=== PATIENT | male | born 1935 | race Caucasian/White ===

== ENCOUNTER 2016-10-30 14:44 | Observation (INO) | payer MEDICARE, BC ==
[2016-10-30] MEDS ORDERED: SODIUM CHLORIDE 0.9% 500 ML IV STA (15:20)
--- NOTE | 2016-10-30 15:39 | ED ---
General Adult HPI - General Chief complaint: Weakness Stated complaint: Poss Stroke Time Seen by Provider: 10/30/16 14:52 Source: patient, family, RN notes reviewed Mode of arrival: wheelchair Limitations: no limitations - History of Present Illness Initial comments: 81-year-old male with past medical history of hypercholesterolemia presents for evaluation of generalized weakness and episode of confusion. Patient was shopping with his , complaints of dizziness and lightheadedness. Patient was able to get into the car with some assistance. No focal weakness reported. No chest pain or palpitations. No abdominal pain. No fever or chills. Patient's had a momentary loss consciousness while in the car with his . He was unresponsive. Patient has no history of stroke, no heart history, only medicine he takes is for cholesterol. - Related Data Home Medications Medication Instructions Recorded Confirmed Calcium Carbonate [Calcium] 600 mg PO QAM 10/30/16 10/30/16 Cholecalciferol [Vitamin D3] 1,000 unit PO QAM 10/30/16 10/30/16 Magnesium 200 mg PO QAM 10/30/16 10/30/16 Meloxicam [Mobic] 7.5 mg PO DAILY PRN 10/30/16 10/30/16 Omeprazole 20 mg PO DAILY PRN 10/30/16 10/30/16 Pravastatin Sodium [Pravachol] 20 mg PO HS 10/30/16 10/30/16 Zinc 50 mg PO QA 10/30/16 10/30/16 Allergies Allergy/AdvReac Type Severity Reaction Status Date / Time No Known Allergies Allergy Verified 10/30/16 15:30 Review of Systems ROS Statement: Those systems with pertinent positive or pertinent negative responses have been documented in the HPI. ROS Other: All systems not noted in ROS Statement are negative. Past Medical History Past Medical History: Hyperlipidemia History of Any Multi-Drug Resistant Organisms: None Reported Additional Past Surgical History / Comment(s): hernia repairx2 rt knee replacement Past Psychological History: No Psychological Hx Reported Smoking Status: Never smoker Past Alcohol Use History: None Reported Past Drug Use History: None Reported General Exam Limitations: no limitations General appearance: alert, in no apparent distress Head exam: Present: atraumatic, normocephalic Eye exam: Present: normal appearance, PERRL ENT exam: Present: normal exam, mucous membranes moist Neck exam: Present: normal inspection. Absent: tenderness, meningismus Respiratory exam: Present: normal lung sounds bilaterally. Absent: respiratory distress Cardiovascular Exam: Present: regular rate, normal rhythm GI/Abdominal exam: Present: soft. Absent: distended, tenderness Extremities exam: Present: normal capillary refill, joint swelling (Right wrist tender and swollen). Absent: calf tenderness Course Vital Signs 10/30/16 10/30/16 10/30/16 14:50 15:05 16:15 Temperature 97.4 F L Pulse Rate 77 85 Respiratory 18 18 18 Rate Blood Pressure 87/57 99/59 140/86 Blood Pressure [Right Arm Sitting] Blood Pressure [Right Arm Standing] Blood Pressure [Right Arm Supine] O2 Sat by Pulse 97 Oximetry 10/30/16 10/30/16 16:56 17:10 Temperature Pulse Rate 90 Respiratory 20 Rate Blood Pressure 165/98 Blood Pressure 163/95 [Right Arm Sitting] Blood Pressure 157/93 [Right Arm Standing] Blood Pressure 156/88 [Right Arm Supine] O2 Sat by Pulse 97 Oximetry - Reevaluation(s) Reevaluation #1: 10/30/16 17:25 Patient receives IV hydration, reevaluation he is completely asymptomatic. EKG Findings - EKG Comments: EKG Findings:: EKG shows no sinus rhythm, ventricular rate 66, WI interval 118, QRS duration 74, QTC 396, no signs of ischemia or infarction Medical Decision Making - Medical Decision Making 81-year-old gentleman with no significant past medical history presents with syncopal episode. Patient does admit on reevaluation 2 doing extensive [place] work yesterday. It was very warm all. Denies nausea vomiting. States he did have breakfast and some water today. On initial evaluation patient was hypotensive. He receives IV hydration. Laboratory studies including CBC, CMP like gas and urinalysis are unremarkable for mild lactic acidosis at 2.5. This is consistent with dehydration and volume depletion. EKG is nonischemic. Chest x-ray shows no acute findings. Head CT negative for intracranial pathology. Reevaluation patient is feeling better, however his is very concerned if the second episode like this were to happen. They are both agreeable to observation with IV rehydration. - Lab Data Result diagrams: 10/30/16 15:00 10/30/16 15:00 Lab Results 09/24/17 09/24/17 09/24/17 Range/Units 15:00 15:00 15:00 WBC (3.8-10.6) k/uL RBC (4.30-5.90) m/uL Hgb (13.0-17.5) gm/dL Hct (39.0-53.0) % MCV (80.0-100.0) fL MCH (25.0-35.0) pg MCHC (31.0-37.0) g/dL RDW (11.5-15.5) % Plt Count (150-450) k/uL Neutrophils % % Lymphocytes % % Monocytes % % Eosinophils % % Basophils % % Neutrophils # (1.3-7.7) k/uL Lymphocytes # (1.0-4.8) k/uL Monocytes # (0-1.0) k/uL Eosinophils # (0-0.7) k/uL Basophils # (0-0.2) k/uL PT (9.0-12.0) sec INR (<1.2) APTT (22.0-30.0) sec Sodium 138 (137-145) mmol/L Potassium 4.4 (3.5-5.1) mmol/L Chloride 107 (98-107) mmol/L Carbon Dioxide 20 L (22-30) mmol/L Anion Gap 11 mmol/L BUN 16 (9-20) mg/dL Creatinine 0.90 (0.66-1.25) mg/dL Est GFR (MDRD) Af Amer >60 (>60 ml/min/1.73 sqM) Est GFR (MDRD) Non-Af >60 (>60 ml/min/1.73 sqM) Glucose 113 H (74-99) mg/dL Plasma Lactic Acid Elton (0.7-2.0) mmol/L Calcium 8.8 (8.4-10.2) mg/dL Magnesium 1.9 (1.6-2.3) mg/dL Total Bilirubin 0.8 (0.2-1.3) mg/dL AST 23 (17-59) U/L ALT 39 (21-72) U/L Alkaline Phosphatase 64 (38-126) U/L Total Creatine Kinase 49 L (55-170) U/L CK-MB (CK-2) 1.3 (0.0-2.4) ng/mL CK-MB (CK-2) Rel Index 2.7 Troponin I <0.012 (0.000-0.034) ng/mL NT-Pro-B Natriuret Pep 42 pg/mL Total Protein 6.4 (6.3-8.2) g/dL Albumin 3.8 (3.5-5.0) g/dL TSH 3.310 (0.465-4.680) mIU/L Urine Color Urine Appearance (Clear) Urine pH (5.0-8.0) Ur Specific Brandon (1.001-1.035) Urine Protein (Negative) Urine Glucose (UA) (Negative) Urine Ketones (Negative) Urine Blood (Negative) Urine Nitrite (Negative) Urine Bilirubin (Negative) Urine Urobilinogen (<2.0) mg/dL Ur Leukocyte Esterase (Negative) 10/30/16 10/30/16 10/30/16 Range/Units 15:00 15:00 16:20 WBC 10.5 (3.8-10.6) k/uL RBC 4.69 (4.30-5.90) m/uL Hgb 15.3 (13.0-17.5) gm/dL Hct 46.2 (39.0-53.0) % MCV 98.3 (80.0-100.0) fL MCH 32.6 (25.0-35.0) pg MCHC 33.1 (31.0-37.0) g/dL RDW 13.8 (11.5-15.5) % Plt Count 224 (150-450) k/uL Neutrophils % 67 % Lymphocytes % 21 % Monocytes % 8 % Eosinophils % 2 % Basophils % 1 % Neutrophils # 7.1 (1.3-7.7) k/uL Lymphocytes # 2.2 (1.0-4.8) k/uL Monocytes # 0.8 (0-1.0) k/uL Eosinophils # 0.2 (0-0.7) k/uL Basophils # 0.1 (0-0.2) k/uL PT 10.1 (9.0-12.0) sec INR 1.0 (<1.2) APTT 23.2 (22.0-30.0) sec Sodium (137-145) mmol/L Potassium (3.5-5.1) mmol/L Chloride (98-107) mmol/L Carbon Dioxide (22-30) mmol/L Anion Gap mmol/L BUN (9-20) mg/dL Creatinine (0.66-1.25) mg/dL Est GFR (MDRD) Af Amer (>60 ml/min/1.73 sqM) Est GFR (MDRD) Non-Af (>60 ml/min/1.73 sqM) Glucose (74-99) mg/dL Plasma Lactic Acid Elton 2.5 H* (0.7-2.0) mmol/L Calcium (8.4-10.2) mg/dL Magnesium (1.6-2.3) mg/dL Total Bilirubin (0.2-1.3) mg/dL AST (17-59) U/L ALT (21-72) U/L Alkaline Phosphatase (38-126) U/L Total Creatine Kinase (55-170) U/L CK-MB (CK-2) (0.0-2.4) ng/mL CK-MB (CK-2) Rel Index Troponin I (0.000-0.034) ng/mL NT-Pro-B Natriuret Pep pg/mL Total Protein (6.3-8.2) g/dL Albumin (3.5-5.0) g/dL TSH (0.465-4.680) mIU/L Urine Color Urine Appearance (Clear) Urine pH (5.0-8.0) Ur Specific Brandon (1.001-1.035) Urine Protein (Negative) Urine Glucose (UA) (Negative) Urine Ketones (Negative) Urine Blood (Negative) Urine Nitrite (Negative) Urine Bilirubin (Negative) Urine Urobilinogen (<2.0) mg/dL Ur Leukocyte Esterase (Negative) 10/30/16 Range/Units 16:47 WBC (3.8-10.6) k/uL RBC (4.30-5.90) m/uL Hgb (13.0-17.5) gm/dL Hct (39.0-53.0) % MCV (80.0-100.0) fL MCH (25.0-35.0) pg MCHC (31.0-37.0) g/dL RDW (11.5-15.5) % Plt Count (150-450) k/uL Neutrophils % % Lymphocytes % % Monocytes % % Eosinophils % % Basophils % % Neutrophils # (1.3-7.7) k/uL Lymphocytes # (1.0-4.8) k/uL Monocytes # (0-1.0) k/uL Eosinophils # (0-0.7) k/uL Basophils # (0-0.2) k/uL PT (9.0-12.0) sec INR (<1.2) APTT (22.0-30.0) sec Sodium (137-145) mmol/L Potassium (3.5-5.1) mmol/L Chloride (98-107) mmol/L Carbon Dioxide (22-30) mmol/L Anion Gap mmol/L BUN (9-20) mg/dL Creatinine (0.66-1.25) mg/dL Est GFR (MDRD) Af Amer (>60 ml/min/1.73 sqM) Est GFR (MDRD) Non-Af (>60 ml/min/1.73 sqM) Glucose (74-99) mg/dL Plasma Lactic Acid Elton (0.7-2.0) mmol/L Calcium (8.4-10.2) mg/dL Magnesium (1.6-2.3) mg/dL Total Bilirubin (0.2-1.3) mg/dL AST (17-59) U/L ALT (21-72) U/L Alkaline Phosphatase (38-126) U/L Total Creatine Kinase (55-170) U/L CK-MB (CK-2) (0.0-2.4) ng/mL CK-MB (CK-2) Rel Index Troponin I (0.000-0.034) ng/mL NT-Pro-B Natriuret Pep pg/mL Total Protein (6.3-8.2) g/dL Albumin (3.5-5.0) g/dL TSH (0.465-4.680) mIU/L Urine Color Yellow Urine Appearance Clear (Clear) Urine pH 6.0 (5.0-8.0) Ur Specific Brandon 1.012 (1.001-1.035) Urine Protein Trace H (Negative) Urine Glucose (UA) Negative (Negative) Urine Ketones Negative (Negative) Urine Blood Negative (Negative) Urine Nitrite Negative (Negative) Urine Bilirubin Negative (Negative) Urine Urobilinogen <2.0 (<2.0) mg/dL Ur Leukocyte Esterase Negative (Negative) Disposition Clinical Impression: Syncope, Dehydration Disposition: ADMITTED IP TO THIS HOSP Condition: Stable Referrals: Ash Fink DO [Primary Care Provider] - 1-2 days Decision to Admit Reason: Admit from EC Decision Date: 10/30/16 Decision Time: 17:28
[2016-10-30 15:53] LABS: Basophils # (A) 0.1 k/uL (0-0.2); Basophils % (A) 1 %; CH 33.1; CHCM 33.9; Eosinophils # (A) 0.2 k/uL (0-0.7); Eosinophils % (A) 2 %; HCT 46.2 % (39.0-53.0); HDW 2.35; HGB 15.3 gm/dL (13.0-17.5); Luc % (Auto) 2; Lymphocytes # (A) 2.2 k/uL (1.0-4.8); Lymphocytes % (A) 21 %; MCH 32.6 pg (25.0-35.0); MCHC 33.1 g/dL (31.0-37.0); MCV 98.3 fL (80.0-100.0); Monocytes # (A) 0.8 k/uL (0-1.0); Monocytes % (A) 8 %; Neutrophils # (A) 7.1 k/uL (1.3-7.7); Neutrophils % (A) 67 %; RBC 4.69 m/uL (4.30-5.90); RDW 13.8 % (11.5-15.5); WBC 10.5 k/uL (3.8-10.6); WBC (Perox) 10.97
[2016-10-30 16:04] LABS: ALT 39 U/L (21-72); AST 23 U/L (17-59); Alkaline Phosphatase 64 U/L (38-126); Anion Gap 11 mmol/L; Blood Urea Nitrogen 16 mg/dL (9-20); Calcium 8.8 mg/dL (8.4-10.2); Carbon Dioxide 20 mmol/L (22-30); Chloride 107 mmol/L (98-107); Glucose 113 mg/dL (74-99); Magnesium 1.9 mg/dL (1.6-2.3); Non-African American GFR(MDRD) >60 (>60 ml/min/1.73 sqM); Potassium 4.4 mmol/L (3.5-5.1); Sodium 138 mmol/L (137-145); Total Bilirubin 0.8 mg/dL (0.2-1.3); Total Protein 6.4 g/dL (6.3-8.2)
[2016-10-30 16:07] LABS: Creatine Kinase 49 U/L (55-170)
[2016-10-30 16:08] LABS: Partial Thromboplastin Time 23.2 sec (22.0-30.0); Prothrombin Time 10.1 sec (9.0-12.0)
[2016-10-30] MEDS: SODIUM CHLORIDE 0.9% 1,000 ML IV SCH (16:13)
--- NOTE | 2016-10-30 16:17 | CT ---
EXAMINATION TYPE: CT brain wo con DATE OF EXAM: 10/30/2016 COMPARISON: NONE HISTORY: Syncopal episode today CT DLP: 1036 mGycm Automated exposure control for dose reduction was used. FINDINGS: There is mild cerebral cortical atrophy. There is no mass effect nor midline shift. There is no sign of intracranial hemorrhage. There is mild hypodensity in the periventricular white matter. The calvar ium is intact. There is mucosal thickening throughout the left mastoid air cells. There is opacificat ion of the left middle ear cavity. IMPRESSION: CEREBRAL ATROPHY AND CHRONIC SMALL VESSEL ISCHEMIA. NO ACUTE INTRACRANIAL ABNORMALITY. CHANGES OF CHRONIC LEFT MASTOIDITIS. THERE IS INCREASED DENSITY IN THE LEFT MIDDLE EAR CAVITY CONSIST ENT WITH OTITIS MEDIA.
--- NOTE | 2016-10-30 16:19 | XR ---
EXAMINATION TYPE: XR chest 2V DATE OF EXAM: 10/30/2016 COMPARISON: NONE HISTORY: Weakness TECHNIQUE: Frontal and lateral views of the chest are obtained. FINDINGS: There is no heart failure nor confluent pneumonic infiltrate. There are no hilar masses. T horacic aorta shows mild atheromatous change. There is no sign of pleural effusion. There is 30% anterior wedging of T12 and L2 vertebra. IMPRESSION: No active cardiac pulmonary disease. Normal heart. Old compression fractures.
[2016-10-30 16:20] LABS: Creatine Kinase MB 1.3 ng/mL (0.0-2.4); Troponin I <0.012 ng/mL (0.000-0.034)
--- NOTE | 2016-10-30 16:20 | XR ---
EXAMINATION TYPE: XR wrist complete RT DATE OF EXAM: 10/30/2016 COMPARISON: NONE HISTORY: Pain and swelling TECHNIQUE: 4 views FINDINGS: There is calcification in the tracheal cartilage. Carpal bones are intact and there is narr owing of first carpometacarpal joint space. I see no fracture line. There is some narrowing of radioc arpal joint space. IMPRESSION: Hypertrophic degenerative changes. Chondrocalcinosis. No fracture seen.
[2016-10-30 17:03] LABS: Appearance,Urine Clear (Clear); Bilirubin,Urine Negative (Negative); Glucose,Urine (UA) Negative (Negative); Ketones,Urine Negative (Negative); Leukocyte Esterase,Urine Negative (Negative); Nitrite,Urine Negative (Negative); Protein,Urine Trace (Negative); Specific Gravity,Urine 1.012 (1.001-1.035); UA Billing (MACRO vs. MICRO) CHEM; Urobilinogen,Urine <2.0 mg/dL (<2.0)
[2016-10-30] MEDS ORDERED: NALOXONE 0.4 MG/ML 1 ML VIAL IV PRN (17:28)
[2016-10-30 18:58] VITALS: BMI 26.1
--- NOTE | 2016-10-30 20:13 | P.HPIM ---
History of Present Illness H&P Date: 10/30/16 Chief Complaint: Dizzy and lightheaded 81-year-old male patient of Dr. Ash Fink with past medical history significant for hypercholesterolemia presented for evaluation of generalized weakness and an episode of lightheadedness and confusion. Patient and his went to [employer] for shopping, patient's went inside the mall and completed her shopping while the patient sat in his car and read a book, patient went back into the mall to meet up with and on the way out patient became dizzy and lightheaded. No chest pain and palpitations no abdominal pain no fever no chills. Patient was assisted into the car by his and another entry specialists. Patient doesn't remember much after that, informs us that he was unresponsive in the car for a short time. Patient states that he did do a fair amount of activity prior to going to the mall with his he cut the grass watered will and rode his bicycle. Review of Systems GEN.: [None] EYES: [Previous cataract surgery bilaterally, wears glasses] HEENT: [None] NECK: [None] RESPIRATORY: [None] CARDIOVASCULAR: [None] GASTROINTESTINAL: [Occasional indigestion] GENITOURINARY: [Urgency] MUSCULOSKELETAL: [Right foot drop secondary to old sports injury, and the type work patient has done, bilateral carpal tunnel wrist pain] LYMPHATICS: [None] HEMATOLOGICAL: [None] PSYCHIATRY: [None] NEUROLOGICAL: [None] Past Medical History Past Medical History: Hyperlipidemia History of Any Multi-Drug Resistant Organisms: None Reported Additional Past Surgical History / Comment(s): hernia repairx2 rt knee replacement Past Psychological History: No Psychological Hx Reported Smoking Status: Former smoker (smoked a pipe or cigars until 1963, pipe was occasional and cigars were about 1-2/day for 25 years) Past Alcohol Use History: None Reported Past Drug Use History: None Reported Additional History: 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, 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 Medications and Allergies Home Medications Medication Instructions Recorded Confirmed Type Calcium Carbonate [Calcium] 600 mg PO QAM 10/30/16 10/30/16 History Cholecalciferol [Vitamin D3] 1,000 unit PO QAM 10/30/16 10/30/16 History Magnesium 200 mg PO QAM 10/30/16 10/30/16 History Meloxicam [Mobic] 7.5 mg PO DAILY PRN 10/30/16 10/30/16 History Omeprazole 20 mg PO DAILY PRN 10/30/16 10/30/16 History Pravastatin Sodium [Pravachol] 20 mg PO DAILY 10/30/16 10/30/16 History Zinc 50 mg PO QAM 10/30/16 10/30/16 History Allergies Allergy/AdvReac Type Severity Reaction Status Date / Time No Known Allergies Allergy Verified 10/30/16 15:30 Physical Exam Vitals: Vital Signs Temp Pulse Pulse Resp BP BP BP 10/30/16 19:03 99 18 10/30/16 19:01 97.4 F L 99 18 171/96 10/30/16 17:59 98 F 88 20 170/106 10/30/16 17:10 163/95 157/93 10/30/16 16:56 90 20 165/98 10/30/16 16:15 85 18 140/86 10/30/16 15:05 77 18 99/59 10/30/16 14:50 97.4 F L 18 87/57 BP Pulse Ox 10/30/16 19:03 10/30/16 19:01 97 10/30/16 17:59 99 10/30/16 17:10 156/88 10/30/16 16:56 97 10/30/16 16:15 97 10/30/16 15:05 10/30/16 14:50 Intake and Output 10/30/16 10/30/16 10/30/16 06:59 14:59 22:59 Other: Voiding Method Toilet Weight 73.482 kg 73.482 kg Patient Weight 10/31/16 06:59 Weight 73.482 kg VITAL SIGNS: [Temperature 97.4, pulse 99, respirations 18, blood pressure 171/96 , oxygen saturation 97% on room air.. BMI 26.1 kg/m] GENERAL: [Average built, sitting up, comfortable]. EYES: [Pupils equal. Conjunctiva zain]l. HEENT: [External appearance of nose and ears normal, oral cavity grossly normal] . NECK: [JVD not raised; masses not palpable]. HEART: [First and second heart sounds are normal; no edema]. LUNGS:[ Respiratory rate normal; clear to auscultation]. ABDOMEN: [Soft, nontender, liver spleen not palpable, no masses palpable]. LYMPHATICS: [No lymph nodes palpable in the axilla and neck]. PSYCH: [Alert and oriented x3; mood and affect zain]l. MUSCULOSKELETAL: Right foot with brace on for foot drop. Bilateral wrists tender to palpation secondary to carpal tunnel NEUROLOGICAL: [Cranial nerves grossly intact; no facial asymmetry, power and sensation grossly intact]. Results CBC & Chem 7: 10/30/16 15:00 10/30/16 15:00 Labs: Abnormal Lab Results - Last 24 Hours (Table) 10/30/16 10/30/16 10/30/16 Range/Units 15:00 15:00 16:20 Carbon Dioxide 20 L (22-30) mmol/L Glucose 113 H (74-99) mg/dL Plasma Lactic Acid Elton 2.5 H* (0.7-2.0) mmol/L Total Creatine Kinase 49 L (55-170) U/L Urine Protein (Negative) 10/30/16 Range/Units 16:47 Carbon Dioxide (22-30) mmol/L Glucose (74-99) mg/dL Plasma Lactic Acid Elton (0.7-2.0) mmol/L Total Creatine Kinase (55-170) U/L Urine Protein Trace H (Negative) Thrombosis Risk Factor Assmnt - Choose All That Apply Each Risk Factor Represents 3 Points: Age 75 years or older Thrombosis Risk Factor Assessment Total Risk Factor Score: 3 Thrombosis Risk Factor Assessment Level: Moderate Risk Assessment and Plan Plan: ASSESSMENT: -Dizziness and lightheadedness, likely due to dehydration or possibly low blood glucose. -Syncope, in a patient with no significant cardiac history -Lactic acidosis likely due to dehydration -Hyperlipidemia -Right foot drop secondary to old sports injury, brace in place -bilateral wrist pain, likely due to known carpal tunnel. PLAN: Reorder home medication Continue IV fluids, orthostatic vitals, monitor patient overnight. We will continue to follow this patient closely. Plan of care discussed with the patient the bedside he is in agreement.
[2016-10-31] MEDS: SODIUM CHLORIDE 0.9% 1,000 ML IV SCH ×2 (05:51→09:52)
[2016-10-31 07:30] VITALS: BP 152/93; PULSE 78; RESP 20; TEMP 98.1
[2016-10-31 08:34] LABS: Glucose,Whole Blood 120 mg/dL (75-99)
[2016-10-31 09:48] LABS: Basophils % (A) 0 %; CH 32.8; CHCM 33.4; Eosinophils # (A) 0.1 k/uL (0-0.7); Eosinophils % (A) 1 %; HCT 44.2 % (39.0-53.0); HDW 2.37; HGB 14.5 gm/dL (13.0-17.5); Luc # (Auto) 0.15; Luc % (Auto) 2; Lymphocytes # (A) 1.5 k/uL (1.0-4.8); Lymphocytes % (A) 19 %; MCH 32.3 pg (25.0-35.0); MCHC 32.7 g/dL (31.0-37.0); MCV 98.9 fL (80.0-100.0); Mean Platelet Volume 7.7; Monocytes # (A) 0.6 k/uL (0-1.0); Monocytes % (A) 8 %; Neutrophils # (A) 5.5 k/uL (1.3-7.7); Neutrophils % (A) 70 %; RBC 4.47 m/uL (4.30-5.90); WBC 7.9 k/uL (3.8-10.6); WBC (Perox) 7.79
[2016-10-31 10:08] LABS: ALT 23 U/L (21-72); AST 18 U/L (17-59); Alkaline Phosphatase 55 U/L (38-126); Anion Gap 9 mmol/L; Blood Urea Nitrogen 11 mg/dL (9-20); Calcium 8.4 mg/dL (8.4-10.2); Carbon Dioxide 21 mmol/L (22-30); Chloride 111 mmol/L (98-107); Glucose 103 mg/dL (74-99); Non-African American GFR(MDRD) >60 (>60 ml/min/1.73 sqM); Potassium 4.1 mmol/L (3.5-5.1); Sodium 141 mmol/L (137-145); Total Bilirubin 1.1 mg/dL (0.2-1.3)
[2016-10-31] MEDS ORDERED: PANTOPRAZOLE 40 MG TABLET PO PRN (11:40)
[2016-10-31] MEDS ORDERED: PRAVASTATIN SODIUM 20 MG TAB PO SCH (11:45)
[2016-10-31] MEDS ORDERED: ENOXAPARIN 40 MG/0.4 ML SYRINGE SQ SCH (11:45)
--- NOTE | 2016-10-31 22:03 | DS ---
DISCHARGE SUMMARY DATE OF ADMISSION: 10/30/2016 DATE OF DISCHARGE: 10/31/2016 FINAL DIAGNOSES: 1. Acute syncope due to dehydration due to heat exhaustion. 2. Lactic acid due to dehydration. 3. Hyperlipidemia. 4. 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 5. Bilateral carpal tunnel. HOSPITAL COURSE: This patient was out yesterday for quite a bit, rode his bicycle, walked; the temperature was up to 90 degrees. He did not feel well afterwards and then passed out. [place] to be dehydration. He was given fluids and did really well. EKG was unremarkable. Patient was hypotensive initially, then his blood pressure did come up. PHYSICAL EXAMINATION: Lungs are clear. CARDIOVASCULAR: First and second sounds normal. DISCHARGE MEDICATIONS: 1. Calcium 600 mg p.o. daily. 2. Vitamin D3 1000 units p.o. daily. 3. Magnesium 200 mg p.o. daily. 4. Mobic 7.5 p.o. daily p.r.n. 5. Omeprazole 20 mg daily p.r.n. 6. Pravachol 20 mg p.o. daily. 7. Zinc 50 mg p.o. daily. Follow up with Dr. Fink in 2 days. MMODL / IJN: [id number] /
== END 2016-10-31 13:35 | disposition home or self-care (01) ==
LOC: EC 14:44 → 4MS4W 17:18
PROVIDERS: ADMIT Hospitalist; ATTEND Hospitalist
DX: R55 Syncope and collapse (principal); T67.5XXA Heat exhaustion, unspecified, initial encounter; E86.0 Dehydration; E78.5 Hyperlipidemia, unspecified; I95.9 Hypotension, unspecified; M21.371 Foot drop, right foot; E87.2 Acidosis; G56.03 Carpal tunnel syndrome, bilateral upper limbs; Z79.899 Other long term (current) drug therapy; Z87.891 Personal history of nicotine dependence
CPT/HCPCS: 96360; 96361; 96372; 99285; 36415; 93005; 83880; 80053 ×2; 82550; 82553; 83605; 83735; 84443; 84484; 85025 ×2; 85610; 85730; 81003; 87040; 87086; 71020; 73110; 70450; G0378 ×2; J1650

== ENCOUNTER 2017-06-26 19:06 | Inpatient (IN) | payer MEDICARE, BC ==
[2017-06-26] MEDS ORDERED: ASPIRIN 81 MG PO STA (19:39)
--- NOTE | 2017-06-26 19:39 | ED ---
Neuro HPI - General Chief Complaint: Neuro Symptoms/Deficit Stated Complaint: poss TIA Time Seen by Provider: 06/26/17 19:14 Source: patient, EMS Mode of arrival: EMS Limitations: no limitations - History of Present Illness Is the patient presenting with stroke symptoms?: Yes Initial Comments: This 82-year-old white male presents by EMS as a transfer from [facility]. He apparently had problems with his speech earlier today. It sounds as though he had some expressive aphasia around noon today which lasted about an hour or so. The symptoms then resolved and he feels back to normal at this time. He denies any history of CVA or TIA previously. He denies any weakness of his extremities. He does complain of some pain and swelling to his right wrist which she attributes to increased work recently. He denies any actual trauma to his right wrist but does have significant swelling. He denies any chest pain or shortness of breath. He did have full workup at the other hospital including a CTA of the head and neck does not show any acute processes. His laboratory is essentially within normal limits. He denies any other complaints or modifying factors. - Related Data Home Medications: Home Medications Medication Instructions Recorded Confirmed Calcium Carbonate [Calcium] 600 mg PO QAM 10/30/16 10/30/16 Cholecalciferol [Vitamin D3] 1,000 unit PO QAM 10/30/16 10/30/16 Magnesium 200 mg PO QAM 10/30/16 10/30/16 Meloxicam [Mobic] 7.5 mg PO DAILY PRN 10/30/16 10/30/16 Omeprazole 20 mg PO DAILY PRN 10/30/16 10/30/16 Pravastatin Sodium [Pravachol] 20 mg PO DAILY 10/30/16 10/30/16 Zinc 50 mg PO QAM 10/30/16 10/30/16 Allergies/Adverse Reactions: Allergies Allergy/AdvReac Type Severity Reaction Status Date / Time No Known Allergies Allergy Verified 10/30/16 15:30 Review of Systems ROS Statement: Those systems with pertinent positive or pertinent negative responses have been documented in the HPI. ROS Other: All systems not noted in ROS Statement are negative. General Exam - General Exam Comments Initial Comments: GENERAL: The patient is well nourished and well hydrated. VITAL SIGNS: Heart rate, blood pressure, respiratory rate reviewed as recorded in nurse's notes. EYES: Pupils are round and reactive. Extraocular movements are intact. No conjunctival / lid redness or swelling. ENT: No external evidence of injury, swelling, or ecchymosis. Airway is patent. Throat is clear. NECK: Nontender. No swelling or evidence of injury. No subcutaneous emphysema. Trachea is midline. No thyroid mass. HEART: Regular rate and rhythm. Good peripheral pulses. LUNGS/CHEST: Breath sounds clear and equal bilaterally. No rales, rhonchi, or wheezes. No ecchymosis, subcutaneous emphysema, or tenderness. ABDOMEN: Abdomen soft without tenderness. No palpable masses or organomegaly. No peritoneal signs. No abdominal wall swelling or ecchymosis. EXTREMITIES: There is tenderness and swelling of the right wrist and hand. There is pain with any attempt of range of motion of the right wrist. Normal muscle tone and function. No thoracolumbar tenderness. NEUROLOGIC: Sensation is grossly intact. Cranial nerve exam reveals face is symmetrical, tongue is midline, speech is clear. SKIN: No abrasions or ecchymosis is noted. No induration or masses noted. PSYCHIATRIC: Alert and oriented. Appropriate behavior and judgment. Limitations: no limitations Stroke MDM - Medical Decision Making The patient was seen and examined. All diagnostics were reviewed from the sending facility. He did have a EKG done which shows a normal sinus rhythm with no acute ST-T wave changes noted. The patient also had a full laboratory workup which was all essentially within normal limits with minimal elevation of the lactic acid at 2.8. The urine drug screen and alcohol level were negative as well. The patient also had an x-ray of the right wrist which showed significant degenerative changes. The patient also had an x-ray of the pelvis with did not show any acute abnormalities. It sounds as though the patient did have signs of a TIA. Is felt as though he would benefit from admission to the hospital short stay for further workup and treatment. He is agreeable. Case will be discussed with internal medicine shortly. Past Medical History Past Medical History: Hyperlipidemia History of Any Multi-Drug Resistant Organisms: None Reported Additional Past Surgical History / Comment(s): hernia repairx2 rt knee replacement Past Psychological History: No Psychological Hx Reported Smoking Status: Former smoker Past Alcohol Use History: Occasional Past Drug Use History: None Reported Course Vital Signs 06/26/17 19:20 Temperature 97.5 F L Pulse Rate 95 Respiratory 18 Rate Blood Pressure 169/98 O2 Sat by Pulse 97 Oximetry Disposition Clinical Impression: Expressive aphasia, Hypertension, Right wrist sprain, Wrist arthritis Disposition: ADMITTED IP TO THIS HOSP Condition: Fair Is patient prescribed a controlled substance at d/c from ED?: No Referrals: Ash Fink DO [Primary Care Provider] - 1-2 days Time of Disposition: 19:38 Decision Date: 06/26/17 Decision Time: 19:39
[2017-06-26] MEDS ORDERED: MELOXICAM 7.5 MG TAB PO PRN (20:10)
[2017-06-26] MEDS ORDERED: PANTOPRAZOLE 40 MG TABLET PO PRN (20:10)
[2017-06-26] MEDS ORDERED: FAMOTIDINE 20 MG/2 ML VIAL IV SCH (21:00)
[2017-06-26 22:57] VITALS: BMI 25.2
[2017-06-26] MEDS: traMADol 50 MG TAB PO PRN (23:07)
[2017-06-27 07:58] LABS: Cholesterol 149 mg/dL (<200); HDL Cholesterol 53 mg/dL (40-60); LDL Cholesterol,Calculated 79 mg/dL (0-99); Triglycerides 85 mg/dL (<150)
[2017-06-27] MEDS: CYANOCOBALAMIN 500 MCG TAB PO SCH (08:32)
[2017-06-27] MEDS: ASPIRIN 325 MG TAB PO SCH (08:32)
[2017-06-27] MEDS: LORATADINE 10 MG TAB PO SCH (08:32)
[2017-06-27] MEDS: ENOXAPARIN 40 MG/0.4 ML SYRINGE SQ SCH (08:32)
[2017-06-27] MEDS: PRAVASTATIN SODIUM 20 MG TAB PO SCH (08:32)
[2017-06-27] MEDS ORDERED: NON-FORMULARY DRUG (Calcium/Magnesium/Zinc [Calcium-Magnesium-Zinc Tablet] 1 TAB) PO SCH (09:00)
[2017-06-27] MEDS: traMADol 50 MG TAB PO PRN (10:46)
--- NOTE | 2017-06-27 11:23 | ECHOF ---
Referral Reason:Thrombus MEASUREMENTS -------- HEIGHT: 152.4 cm WEIGHT: 79.4 kg BP: RVIDd: 2.5 cm (< 3.3) IVSd: 1.4 cm (0.6 - 1.1) LVIDd: 4.1 cm (3.9 - 5.3) LVPWd: 1.3 cm (0.6 - 1.1) IVSs: 1.8 cm LVIDs: 3.3 cm LVPWs: 1.5 cm LA Diam: 4.0 cm (2.7 - 3.8) LAESV Index (A-L): 45.08 ml/m Ao Diam: 3.4 cm (2.0 - 3.7) AV Cusp: 1.5 cm (1.5 - 2.6) LA Diam: 2.9 cm (2.7 - 3.8) MV EXCURSION: 13.536 mm (> 18.000) MV EF SLOPE: 83 mm/s (70 - 150) EPSS: 0.5 cm MV E Franc: 0.69 m/s MV DecT: 226 ms MV A Franc: 0.75 m/s MV E/A Ratio: 0.93 RAP: 5.00 mmHg RVSP: 34.82 mmHg FINDINGS -------- Sinus rhythm. This was a technically adequate study. The left ventricular size is normal. There is moderate concentric left ventricular hypertrophy. O verall left ventricular systolic function is low-normal with, an EF between 50 - 55 %. The right ventricle is normal in size. The left atrium is mildly dilated. LA is severely dilated >40 ml/m2 The right atrial size is normal. There is mild aortic valve sclerosis. There is no evidence of aortic regurgitation. Mild mitral annular calcification present. Mild mitral regurgitation is present. Mild tricuspid regurgitation present. There is no evidence of pulmonary hypertension. The right v entricular systolic pressure, as measured by Doppler, is 34.82mmHg. There is no pulmonic regurgitation present. The aortic root size is normal. There is no pericardial effusion. CONCLUSIONS -------- 1. The left ventricular size is normal. 2. There is moderate concentric left ventricular hypertrophy. 3. Overall left ventricular systolic function is low-normal with, an EF between 50 - 55 %. 4. The right ventricle is normal in size. 5. The left atrium is mildly dilated. 6. LA is severely dilated >40 ml/m2 7. The right atrial size is normal. 8. There is mild aortic valve sclerosis. 9. Mild mitral annular calcification present. 10. Mild mitral regurgitation is present. 11. Mild tricuspid regurgitation present. 12. There is no evidence of pulmonary hypertension. 13. The right ventricular systolic pressure, as measured by Doppler, is 34.82mmHg. 14. There is no pulmonic regurgitation present. 15. The aortic root size is normal. 16. There is no pericardial effusion. DOT COMPLIANCE COORDINATOR: Adelaida Ramos RDCS
--- NOTE | 2017-06-27 18:10 | HP ---
HISTORY AND PHYSICAL DATE OF ADMISSION: 06/26/2017. DATE OF SERVICE: 06/27/2017. PRESENTING COMPLAINT: Dizziness, slurred speech. HISTORY OF PRESENTING COMPLAINT: This is a pleasant 82-year-old patient of Dr. Fink who about a week ago had got up from his easy chair and when he went to get to the bed, he felt the ceiling was spinning and became wobbly while walking going to the bathroom. He did go and see the nurse practitioner at his family doctor's and he was given some medication. Not sure. Symptoms got better. Then the patient had gone shopping 2 days after that and was coming home and suddenly felt that his speech, he is not able to speak out words properly and he still had a little trouble when he would walk wobbly to one side. Those symptoms resolved. The patient sometimes notices these symptoms of being unsteady when he gets up. Today he is somewhat better, but he decided to come in to get checked out. The patient has some injury to the right hand from working in the yard and has an Jone wrap and also support of the right foot for possible foot drop. There was no change in vision. No headache. No focal weakness otherwise. The patient feels his speech is back to normal. REVIEW OF SYSTEMS: None. Constitutional none. HEENT none. Respiratory none. Cardiovascular none. Gastrointestinal/genitourinary none. Musculoskeletal none. Dermatological and hematologic, lymphatic none. Psychiatry none. Neurological as above. PAST MEDICAL HISTORY: Hyperlipidemia. SURGICAL HISTORY: Hernia repair x2, right knee replacement. SOCIAL HISTORY: Patient is a smoker in the remote past. Alcohol occasionally. . Retired. FAMILY HISTORY: Reviewed, noncontributory to presentation. HOME MEDICATIONS: 1. Omeprazole 20 mg p.o. daily p.r.n. 2. Mobic 7.5 p.o. daily p.r.n. 3. Calcium magnesium zinc 10 1 tab p.o. daily. 4. Pravachol 20 mg p.o. daily. 5. Vitamin B12 500 mcg p.o. daily. 6. Zyrtec 10 mg p.o. daily. 7. Aspirin 81 mg p.o. daily. ALLERGIES: None. PHYSICAL EXAMINATION: VITAL SIGNS: On presentation, temperature 97.5. Pulse 95. Respirations 18, blood pressure 169/98, pulse ox 97% on room air. General appearance: Average build, lying in bed, comfortable. Eyes: Pupils equal. Conjunctivae normal. HEENT: External appearance of nose and ears normal. Oral cavity normal. Neck: JVD not raised. Mass not palpable. Respiratory effort normal. Lungs are clear. Cardiovascular: 1st and second sounds normal. No edema. ABDOMEN: Soft, nontender. Liver and spleen not palpable. Lymphatics: No lymph nodes palpable in the neck or axilla. PSYCHIATRY: Alert and oriented x3. Mood and affect normal. Neurological: Pupils equal. Cranial nerves grossly intact. Power and sensation grossly intact. No nystagmus. There is possibly dysdiadochokinesia on the left side. The patient's right hand is in an Jone wrap and cannot be tested. The patient's right knee is artificial, otherwise power and sensation grossly intact. The patient has got a support in the right ankle. INVESTIGATIONS: LDL 79. 2D echo done here shows a preserved LV function and some left ventricular hypertrophy. The patient did have a CT of the head and neck at [facility] that was negative. ASSESSMENT: 1. This patient has slurring of speech, unsteadiness of his gait and some dysdiadochokinesia. I suspect patient may have had a cerebellar/posterior circulation transient ischemic attack/stroke. Needs to be further investigated. 2. Right hand sprain currently in an Jone wrap. 3. Questionable right footdrop, has a support in place. 4. Hypercholesteremia. Patient takes Pravachol at home. PLAN: Patient is currently on aspirin. Home medications are resumed. Neurology consultation has been done. Neuro checks in place. We will order a MRI with and without contrast of the brain, especially looking at the posterior circulation and also do an MRA to look in the neck to make sure not any stenosis. Care was discussed with the patient. Neurology was consulted. Copy to Dr. Fink. MMODL / ARVINN: [id number] /
--- NOTE | 2017-06-27 21:15 | P.CNNES ---
History of Present Illness Consult date: 06/27/17 History of Present Illness: The patient is an 82-year-old right-handed white male who states that one week ago he was sitting in a recliner and when he got up out of the recliner he felt as if to ceiling was moving and he experienced a vertiginous sensation. He saw his primary care physician the following day and some x-rays were done and a prescription for medication given. That night the episode occurred again and he took one of the medications next day he felt better. Patient reports that 2 days ago he went to [employer] and he developed vertigo again while sitting in the store. He went to the car and drove 1 mile and he couldn't get his words out properly. He went to [facility] emergency room and was transferred here to [facility] because there was no bed there. He has had one episode of slurred speech in the emergency room here. He feels well currently. He is normally a very active person and he did ride his bike about 10 miles on Monday morning since he was feeling fine. He also has has some right hand swelling which she attributes to doing too much work last week. At [facility] ER he had a CAT scan of the brain which was reported unremarkable. He has a history of right foot drop patient denies any focal weakness or numbness. He denies any double vision. He denies any swallowing difficulty. He was admitted to the hospital with TIA. He apparently had a CTA done of the head and neck which did not show any acute process. This was apparently done at [facility]. Review of Systems Constitutional: Denies chills, Denies fever Eyes: denies blurred vision, denies pain Cardiovascular: Denies chest pain, Denies shortness of breath Respiratory: Denies cough Gastrointestinal: Denies abdominal pain, Denies diarrhea, Denies nausea, Denies vomiting Musculoskeletal: Denies myalgias Neurological: Reports as per HPI Psychiatric: Denies anxiety, Denies depression Past Medical History Past Medical History: CVA/TIA, Hyperlipidemia History of Any Multi-Drug Resistant Organisms: None Reported Additional Past Surgical History / Comment(s): hernia repairx2 rt knee replacement Past Psychological History: No Psychological Hx Reported Smoking Status: Former smoker Past Alcohol Use History: Occasional Past Drug Use History: None Reported Medications and Allergies Home Medications Medication Instructions Recorded Confirmed Type Meloxicam [Mobic] 7.5 mg PO DAILY PRN 10/30/16 06/26/17 History Omeprazole 20 mg PO DAILY PRN 10/30/16 06/26/17 History Pravastatin Sodium [Pravachol] 20 mg PO DAILY 10/30/16 06/26/17 History Aspirin [Adult Low Dose Aspirin EC] 81 mg PO DAILY 06/26/17 06/26/17 History Calcium/Magnesium/Zinc 1 tab PO DAILY 06/26/17 06/26/17 History [Mfwydeh-Oxmwctmfp-Cjle Tablet] Cetirizine HCl [Zyrtec] 10 mg PO DAILY 06/26/17 06/26/17 History Cyanocobalamin [Vitamin B-12] 500 mcg PO DAILY 06/26/17 06/26/17 History Allergies Allergy/AdvReac Type Severity Reaction Status Date / Time No Known Allergies Allergy Verified 06/26/17 19:58 Physical Examination - Vital Signs Vital Signs: Vital Signs Temp Pulse Pulse Resp BP BP Pulse Ox 06/27/17 15:15 96.7 F L 83 18 138/76 94 L 06/27/17 11:15 97.0 F L 81 18 178/103 97 06/27/17 08:00 97.4 F L 74 20 160/100 96 06/27/17 03:17 81 16 149/89 98 06/27/17 00:00 84 16 178/98 96 06/26/17 21:40 98.8 F 83 18 140/85 96 Intake and Output 06/27/17 06/27/17 06/27/17 06:59 14:59 22:59 Intake Total 358 240 Output Total 500 0 Balance -142 240 Intake: Oral 358 240 Output: Gastric Drainage 0 Urine 500 0 Stool 0 Urine/Stool Mix 0 Emesis 0 Other: # Voids 1 0 # Bowel Movements 0 - Constitutional General appearance: average body habitus, cooperative - EENT EENT: PERRL, hearing intact, vision intact - Respiratory Respiratory: chest non-tender, lungs clear - Cardiovascular Cardiovascular: regular rate, normal S1, normal S2 - Integumentary Integumentary: normal - Neurologic Cranial nerve examination: PERRL, EOMI, VFF, V1/V2/V3 grossly intact, face symmetric, tongue midline Speech examination: intact Sensorimotor examination: intact Detailed motor examination: grossly full strength in all extremities Detailed sensory examination: intact Reflexes: 2+: bicep - Musculoskeletal Musculoskeletal: normal range of motion - Psychiatric Psychiatric: mood/affect appropriate Assessment and Plan (1) TIA (transient ischemic attack) Current Visit: Yes Status: Acute SNOMED Code(s): 935811000 Plan: The patient is an 82-year-old man with history of recurrent episodes of aphasia which was brief. This was associated with some vertigo. The patient has likely had TIA. He has been taking one baby aspirin daily. Recommend further evaluation with MRA of the neck and head. Also recommend MRI scan of the brain. Recommend starting Plavix 75 mg a day if the patient is able to come off of NSAID Mobic. However if the patient requires continuation of mobic then we will not add Plavix and instead increase aspirin to 325 mg once a day
[2017-06-28] MEDS: traMADol 50 MG TAB PO PRN ×3 (05:26→19:21)
[2017-06-28 08:06] LABS: Anion Gap 14 mmol/L; Blood Urea Nitrogen 13 mg/dL (9-20); Carbon Dioxide 22 mmol/L (22-30); Chloride 103 mmol/L (98-107); Cholesterol 153 mg/dL (<200); Glucose 92 mg/dL (74-99); HDL Cholesterol 58 mg/dL (40-60); LDL Cholesterol,Calculated 79 mg/dL (0-99); Potassium 4.2 mmol/L (3.5-5.1); Sodium 139 mmol/L (137-145); Triglycerides 81 mg/dL (<150)
[2017-06-28] MEDS: ENOXAPARIN 40 MG/0.4 ML SYRINGE SQ SCH (08:56)
[2017-06-28] MEDS: PRAVASTATIN SODIUM 20 MG TAB PO SCH (08:56)
[2017-06-28] MEDS: PANTOPRAZOLE 40 MG TABLET PO SCH (08:56)
[2017-06-28] MEDS: ASPIRIN 325 MG TAB PO SCH (08:56)
[2017-06-28] MEDS: LORATADINE 10 MG TAB PO SCH (08:56)
--- NOTE | 2017-06-28 09:13 | MR ---
EXAMINATION TYPE: MR angio head wo con DATE OF EXAM: 06/28/2017 COMPARISON: NONE HISTORY: speech slow/unsteady gait TECHNIQUE: Time of flight images focusing on the [place] were performed without contrast. 2-D and 3-D postprocessing imaging is performed. FINDINGS: There is no evidence of intracranial aneurysm. No focal stenosis, occlusion or dissection i s seen. Vertebral arteries are codominant. [place] appears intact. No evidence of arterial v enous malformation. Visualized portions of the brain are discussed on the MR brain dictation of the s carla date. IMPRESSION: No evidence of vascular occlusion, dissection, focal stenosis or intracranial aneurysm.
--- NOTE | 2017-06-28 09:32 | MR ---
EXAMINATION TYPE: MR brain wo/w mrane wo/wcon DATE OF EXAM: 06/28/2017 COMPARISON: CT brain dated 10/30/2016 HISTORY: speech slow/unsteady gait TECHNIQUE: Multiplanar, multisequence images of the brain and brainstem is performed without and with IV contras t, utilizing 8 mL intravenous Gadavist . MRA of the neck was also performed with and without contrast . FINDINGS: Diffusion weighted images demonstrate no evidence of a recent infarct or other diffusion ab normality. There is no extra-axial fluid collection. The ventricular system and cisternal spaces ar e symmetrically prominent compatible with age-related volume loss. Confluent nonenhancing periventric ular and subcortical white matter changes are seen throughout the supratentorium in addition to small lacunar injuries of the left bailey and right lentiform nucleus. Midline structures demonstrate normal morphology. The craniocervical junction appears within normal limits. Post contrast images demonstrate no abnormal enhancement. The dural venous sinuses appear pa tent. There is scant mucosal thickening within the ethmoid sinuses. The remaining visualized sinuses are clear and the globes are intact. There is complete opacification of the left mastoid air cells an d fluid seen within the left middle ear cavity. Findings are similar to the exam of 10/30/2016. Major intracranial flow voids are maintained. There is a conventional 3 vessel branch pattern of the aortic arch. Minimal atheromatous plaquing is seen of the common carotid arteries without hemodynamically significant stenosis. No focal stenosis i s seen of the cervical portion of the internal carotid arteries. No evidence of vascular dissection i s seen. The vertebral arteries are patent and codominant. No focal aneurysmal outpouching. IMPRESSION: 1. No acute intracranial process. No territorial infarct or midline shift. No abnormal intracranial e nhancement or evidence of intracranial mass. 2. Moderate to severe burden nonspecific white matter change, likely on the basis of chronic microang iopathy and age-related volume loss. 3. 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 4. Chronic left otomastoiditis, similar to exam of 10/30/2016. 5. No evidence of hemodynamically significant stenosis, focal vascular occlusion, aneurysm or dissect ion in the neck.
[2017-06-28] MEDS: CYANOCOBALAMIN 500 MCG TAB PO SCH (11:54)
--- NOTE | 2017-06-28 19:06 | PN ---
PROGRESS NOTE DATE OF SERVICE: 06/28/2017 PRESENTING COMPLAINT: Dizziness, slurred speech. INTERVAL HISTORY: This patient presented with some dizziness, slurred speech. Symptoms have resolved. Patient did have an MRI and MRA that were unremarkable. Otherwise feeling well. REVIEW OF SYSTEMS: Done for constitutional, cardiovascular, GI, pulmonary; relevant findings as above. CURRENT MEDICATIONS: Reviewed. They include aspirin and Pravachol. PHYSICAL EXAMINATION: Temperature 97.3, pulse 85, respiration 16, blood pressure 159/84, pulse ox 95% on room air. GENERAL APPEARANCE: Lying in bed, comfortable. EYES: Pupils equal. Conjunctivae normal. HEENT: External appearance of nose and ears normal. Oral cavity normal. NECK: JVD not raised. Mass not palpable. RESPIRATORY: Effort normal. Lungs are clear. CARDIOVASCULAR: First and second sounds normal. No edema. ABDOMEN: Soft, non-tender. Liver and spleen not palpable. PSYCHIATRY: Alert and oriented x3. Mood and affect normal. NEUROLOGICAL: Unremarkable. INVESTIGATIONS: Potassium 4.2. BUN and creatinine are normal. ASSESSMENT: 1. Episode of slurred speech and unsteady gait. Currently MRI and MRA have been negative. 2. Right hand sprain, currently in an Jone wrap. 3. Chronic right foot drop. The patient has a support in place. 4. Hypercholesteremia. PLAN: Will switch the patient's aspirin to 81 mg twice a day. Will also add Lipitor. Dr. Pelayo would like to proceed with a GENI; hence Cardiology will be consulted. MMODL / IJN: [id number] /
[2017-06-29] MEDS: ENOXAPARIN 40 MG/0.4 ML SYRINGE SQ SCH (09:07)
[2017-06-29] MEDS: ATORVASTATIN 40 MG TAB PO SCH (09:07)
[2017-06-29] MEDS: PANTOPRAZOLE 40 MG TABLET PO SCH (09:07)
[2017-06-29] MEDS: ASPIRIN 81 MG PO SCH ×2 (09:07→20:07)
[2017-06-29] MEDS: LORATADINE 10 MG TAB PO SCH (09:08)
[2017-06-29] MEDS: CYANOCOBALAMIN 500 MCG TAB PO SCH (13:26)
[2017-06-29] MEDS ORDERED: BENZOCAINE SPRAY 1 CAN TOPICAL PRN (14:16)
--- NOTE | 2017-06-29 14:44 | P.CRDCN ---
History of Present Illness History of present illness: Mr. Hernandez is a pleasant 82-year-old male past medical history significant for dyslipidemia, former tobacco use and hernia repair. We have been asked to see him in consultation for GENI to rule out embolic origin for TIA. MRI/MRA of the brain performed were unremarkable. He initially presented with symptoms of slurred speech that lasted approximately an hour. He had CTA of brain and neck at [facility] that were unremarkable. Telemetry tracings have been unremarkable and he has been maintaining sinus mechanism. Echocardiogram and Doppler study performed on this admission revealed preserved left ventricular systolic function with ejection fraction 50-55%, severely dilated left atrium, mild aortic valve sclerosis with no stenosis, mild MR and mild TR. Laboratory data reviewed, hemoglobin 14.5, platelets 213, sodium 139, potassium 4.2, creatinine 0.7, LDL 79 HDL 50, triglycerides 81 and total cholesterol 153. Current medications include aspirin 81 mg twice a day, atorvastatin 40 mg daily and Zyrtec, Mobic and episode. Review of Systems At the time of my exam: CONSTITUTIONAL: Denies fever. Denies chills. EYES: Denies blurred vision. Denies vision changes. Denies eye pain. EARS, NOSE, MOUTH & THROAT: Denies headache. Denies sore throat. Denies ear pain. CARDIOVASCULAR: Denies chest pain. Denies shortness of breath. Denies orthopnea. Denies PND. Denies palpitations. RESPIRATORY: Denies cough. GASTROINTESTINAL: Denies abdominal pain. Denies diarrhea. Denies constipation. Denies nausea. Denies vomiting. MUSCULOSKELETAL: Denies myalgias. INTEGUMENTARY: Denies pruitis. Denies rash. NEUROLOGIC: Denies numbness. Denies tingling. Denies weakness. PSYCHIATRIC: Denies anxiety. Denies depression. ENDOCRINE: Denies fatigue. Denies weight change. Denies polydipsia. Denies polyurina. GENITOURINARY: Denies burning, hematuria or urgency with micturation. HEMATOLOGIC: Denies history of anemia. Denies bleeding. Past Medical History Past Medical History: CVA/TIA, Hyperlipidemia History of Any Multi-Drug Resistant Organisms: None Reported Additional Past Surgical History / Comment(s): hernia repairx2 rt knee replacement Past Psychological History: No Psychological Hx Reported Smoking Status: Former smoker Past Alcohol Use History: Occasional Past Drug Use History: None Reported Medications and Allergies Home Medications Medication Instructions Recorded Confirmed Type Meloxicam [Mobic] 7.5 mg PO DAILY PRN 10/30/16 06/26/17 History Omeprazole 20 mg PO DAILY PRN 10/30/16 06/26/17 History Cetirizine HCl [Zyrtec] 10 mg PO DAILY 06/26/17 06/26/17 History Cyanocobalamin [Vitamin B-12] 500 mcg PO DAILY 06/26/17 06/26/17 History Aspirin [Adult Low Dose Aspirin EC] 81 mg PO BID #0 06/28/17 06/26/17 Rx Atorvastatin Calcium [Lipitor] 40 mg PO DAILY #30 tablet 06/28/17 Rx Allergies Allergy/AdvReac Type Severity Reaction Status Date / Time No Known Allergies Allergy Verified 06/26/17 19:58 Physical Exam Vitals: Vital Signs Temp Pulse Resp BP Pulse Ox 06/29/17 07:25 97.7 F 78 20 134/82 94 L 06/28/17 20:00 98.1 F 88 16 151/97 95 06/28/17 15:09 97.9 F 84 16 130/79 96 Intake and Output 06/28/17 06/29/17 06/29/17 22:59 06:59 14:59 Intake Total 300 Balance 300 Intake: Oral 300 Other: # Voids 2 Blood pressure 134/82 heart rate 78 afebrile maintaining oxygen saturation on room air GENERAL: This is a 82-year-old male in no apparent distress at the time of my examination. HEENT: Head is atraumatic, normocephalic. Pupils are equal, round. Sclerae anicteric. Conjunctivae are clear. Mucous membranes of the mouth are moist. Neck is supple. There is no jugular venous distention. No carotid bruit is heard. LUNGS: Clear to auscultation no wheezes, rales or rhonchi. No chest wall tenderness is noted on palpation or with deep breathing. HEART: Regular rate and rhythm without murmurs, rubs or gallops. S1 and S2 heard. ABDOMEN: Soft, nontender. Bowel sounds are heard. No organomegaly noted. EXTREMITIES: No evidence of peripheral edema and no calf tenderness noted. VASCULAR: Radial and dorsalis pedis pulses palpated, no evidence of clubbing. NEUROLOGIC: Patient is awake, alert and oriented x3. Results 06/28/17 07:16 Current Medications Generic Name Dose Route Start Last Admin Trade Name Phuong PRN Reason Stop Dose Admin Aspirin 81 mg 06/29/17 09:00 06/29/17 09:07 Aspirin PO 81 mg BID JAVID Administration Atorvastatin Calcium 40 mg 06/29/17 09:00 06/29/17 09:07 Lipitor PO 40 mg DAILY JAVID Administration Cyanocobalamin 500 mcg 06/27/17 12:00 06/29/17 13:26 Vitamin B-12 PO 500 mcg 1200 JAVID Administration Enoxaparin Sodium 40 mg 06/27/17 09:00 06/29/17 09:07 Lovenox SQ 40 mg DAILY JAVID Administration Loratadine 10 mg 06/27/17 09:00 06/29/17 09:08 Claritin PO 10 mg DAILY JAVID Administration Meloxicam 7.5 mg 06/26/17 20:10 06/27/17 15:12 Mobic PO 7.5 mg DAILY PRN Administration Pain Pantoprazole Sodium 40 mg 06/28/17 07:30 06/29/17 09:07 Protonix PO 40 mg [id number] JAVID Administration Tramadol HCl 50 mg 06/26/17 20:11 06/28/17 19:21 Ultram PO 50 mg QID PRN Administration Pain Intake and Output 06/28/17 06/29/17 06/29/17 22:59 06:59 14:59 Intake Total 300 Balance 300 Intake: Oral 300 Other: # Voids 2 06/28/17 07:16 Assessment and Plan Assessment: ASSESSMENT 1. TIA 2. Dyslipidemia PLAN GENI will be performed tomorrow with Dr. Joseph as requested per neurology. This has been explained to the patient, his and granddaughter in detail and he is in agreement to proceed with above stated procedure. NPO after midnight tonight. Thank you kindly for this consultation. Nurse Practitioner note has been reviewed, I agree with a documented findings and plan of care. Patient was seen and examined.
[2017-06-29] MEDS: traMADol 50 MG TAB PO PRN (15:02)
--- NOTE | 2017-06-29 18:20 | PN ---
PROGRESS NOTE DATE OF SERVICE: 06/29/2017 PRESENTING COMPLAINT: Dizziness, slurred speech. INTERVAL HISTORY: This patient presented with dizziness, slurred speech; no further symptoms. I did talk to Dr. Stephanie Pelayo yesterday. She wishes to proceed with a GENI, which is being arranged. Otherwise patient is tolerating his diet. REVIEW OF SYSTEMS: Done for constitutional, cardiovascular, GI, pulmonary, neuro; relevant findings as above. CURRENT MEDICATIONS: Reviewed. They include aspirin and Lipitor. PHYSICAL EXAMINATION: Temperature 97.7, pulse 78, respiration 20, blood pressure 134/82, pulse ox 94% on room air. GENERAL APPEARANCE: Sitting at edge of the bed, comfortable. EYES: Pupils equal. Conjunctivae normal. HEENT: External appearance of nose and ears normal. Oral cavity normal. NECK: JVD not raised. Mass not palpable. RESPIRATORY: Effort normal. Lungs are clear. CARDIOVASCULAR: First and second sounds normal. No edema. ABDOMEN: Soft, non-tender. Liver and spleen not palpable. PSYCHIATRY: Alert and oriented x3. Mood and affect normal. Right wrist in an Jone wrap. INVESTIGATIONS: Potassium 4.2. BUN and creatinine are normal. ASSESSMENT: 1. Episode of slurred speech and unsteady gait; possible transient ischemic attack. Pending GENI as ordered by Neurology. 2. Right hand sprain, currently in Jone wrap. 3. Chronic right foot drop. Patient has a support in place. 4. Hypercholesteremia. PLAN: Care was discussed with the patient. GENI is being scheduled for tomorrow morning. Care was discussed with the patient. MMODL / IJN: [id number] /
--- NOTE | 2017-06-29 20:00 | P.PN ---
Subjective Progress Note Date: 06/29/17 The patient is an 82-year-old man who has had recent recurrent TIAs consisting of vertigo and expressive aphasia. He has been stable and has no new complaints. Been no recurrence of expressive aphasia or vertigo. He has had an MRI of the brain which revealed moderate to severe nonspecific white matter changes likely on the basis of chronic microangiopathy. 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 The patient is scheduled for a GENI in a.m. If this is negative the patient will stay on aspirin at a higher dose of 81 mg twice a day. The patient denies any focal weakness numbness visual changes. He has been able to walk and has had a steady gait. A history of chronic right foot drop. Objective - Vital Signs Vital signs: Vital Signs Temp 97.4 F L 06/29/17 14:25 Pulse 91 06/29/17 14:25 Resp 16 06/29/17 14:25 BP 151/83 06/29/17 14:25 Pulse Ox 94 L 06/29/17 14:25 Intake & Output 06/29/17 06/29/17 06/30/17 06:59 18:59 06:59 Intake Total 300 237 Balance 300 237 Intake: Oral 300 237 Other: # Voids 2 10 - Constitutional General appearance: Present: average body habitus - Respiratory Respiratory: bilateral: CTA - Cardiovascular Rhythm: regular - Neurologic Neurologic: Present: CNII-XII intact - Musculoskeletal Musculoskeletal: Present: strength equal bilaterally - Psychiatric Psychiatric: Present: A&O x's 3 - Labs CBC & Chem 7: 06/28/17 07:16 Assessment and Plan (1) TIA (transient ischemic attack) Current Visit: Yes Status: Acute SNOMED Code(s): 931164872 Plan: The patient is an 82-year-old man with history of recurrent episodes of aphasia which was brief. This was associated with some vertigo. The patient has likely had recurrent TIA . He has been taking one baby aspirin daily. He has been stable during his hospital stay.'s awaiting a GENI which will be done in a.m. If this is negative patient will be discharged on 2 baby aspirins daily
[2017-06-30] MEDS ORDERED: MIDAZOLAM 2 MG/2 ML VIAL IV ONE (09:00)
[2017-06-30] MEDS ORDERED: fentaNYL (PF) 50 MCG/ML 5 ML AMP IVP ONE (09:00)
[2017-06-30] MEDS ORDERED: fentaNYL (PF) 50 MCG/ML 2 ML AMP ONE (09:57)
[2017-06-30] MEDS ORDERED: MIDAZOLAM 2 MG/2 ML VIAL ONE ×2 (09:58)
[2017-06-30] MEDS: BENZOCAINE SPRAY 1 CAN MUCOUS MEM ONE ×2 (10:44→10:47)
[2017-06-30] MEDS ORDERED: MIDAZOLAM 2 MG/2 ML VIAL IVP ONE ×2 (10:48→10:52)
[2017-06-30] MEDS ORDERED: SODIUM CHLORIDE 0.9% 500 ML IV ONE (10:50)
--- NOTE | 2017-06-30 11:27 | ECHOT ---
TRANSESOPHAGEAL ECHOCARDIOGRAM DATE OF SERVICE: 06/30/2017 PERFORMING PHYSICIAN: Harlan Joseph MD. PROCEDURE PERFORMED: Transesophageal echocardiogram. INDICATION: This is a pleasant 82-year-old gentleman who was admitted to the hospital with an episode of TIA/stroke and the GENI is to rule out any cardiac source of embolization. COMPLICATION: None. LEVEL OF SEDATION: Moderate with sedation length of 10 minutes. PROCEDURE DESCRIPTION: After obtaining an informed consent, explaining the procedure, benefits, risks, complications and alternatives, the patient was brought to the transesophageal echocardiogram suite. A pulse oximetry and heart rate monitors were attached to the patient prior to the procedure. The patient's throat was sprayed using lidocaine locally. Following that, the patient was turned into left lateral position. A bite guard was placed and the patient was then sedated with the above doses of Versed and fentanyl in divided doses. Following that, the transesophageal echocardiogram probe was advanced through the bite guard into the mid esophagus where 2-D echocardiogram images as well as color Doppler images of various cardiac structures were obtained. We evaluated the interatrial septum using 2-D echocardiogram, color Doppler, and contrast study. The procedure was completed. There were no complications. FINDINGS: The left ventricular dimension and systolic function appeared to be within normal limits with EF about 50%. The right ventricle is of normal size and function. The left atrium appeared to be mildly dilated. The left atrial appendage appeared to be free from any thrombus. The interatrial septum appeared to be intact. The aortic valve is mildly thickened without stenosis with mild insufficiency. The mitral valve seems to be also thickened with mild MR. Normal tricuspid valve and pulmonic valve. CONCLUSION: 1. No evidence of cardiac source of embolization. 2. Intact interatrial septum without any evidence of shunt. 3. Normal left atrial appendage without any thrombus. 4. Normal left ventricular dimension and systolic function. 5. Aortic sclerosis without stenosis with mild insufficiency. 6. Thickened mitral valve leaflets with mild mitral regurgitation. 7. Normal tricuspid valve and pulmonic valve. 8. Normal aortic root dimension. 9. No evidence of pericardial effusion. MMODL / IJN: [id number] /
[2017-06-30 12:31] VITALS: RESP 18
[2017-06-30] MEDS: PANTOPRAZOLE 40 MG TABLET PO SCH (12:39)
[2017-06-30] MEDS: CYANOCOBALAMIN 500 MCG TAB PO SCH (12:39)
[2017-06-30] MEDS: ASPIRIN 81 MG PO SCH (12:39)
[2017-06-30] MEDS: LORATADINE 10 MG TAB PO SCH (12:39)
[2017-06-30] MEDS: ATORVASTATIN 40 MG TAB PO SCH (12:39)
[2017-06-30] MEDS: ENOXAPARIN 40 MG/0.4 ML SYRINGE SQ SCH (12:40)
[2017-06-30 15:09] VITALS: BP 129/79; PULSE 92; TEMP 98.6
[2017-06-30] MEDS: traMADol 50 MG TAB PO PRN (15:14)
--- NOTE | 2017-06-30 20:06 | DS ---
DISCHARGE SUMMARY FINAL DIAGNOSES: 1. Acute transient ischemic attack with slurring of speech. 2. Negative transesophageal echocardiogram. 3. Right hand sprain. 4. Chronic right footdrop. 5. Hypercholesteremia. 6. Old lacunar infarct. DISCHARGE DISPOSITION: The patient will be discharged in stable condition with guarded prognosis. HISTORY OF PRESENT ILLNESS: This 82-year-old gentleman with a past medical history of multiple medical problems, being followed by Dr. Fink in the outpatient setting, was admitted with slurring of speech. TIA was considered and MRI and MRA were done. Neurology Dr. Pelayo saw the patient during hospitalization. MRA showed no acute abnormality; old left paramidline pontine lacunar injury and old right lentiform nucleus lacunar injury were noted. The patient also had a GENI per Dr. Pelayo's recommendation which was also negative. No evidence of cardiac source of emboli was noted. On exam, vitals are stable. CARDIOVASCULAR SYSTEM: S1, S2 muffled. ABDOMEN: Soft. NERVOUS SYSTEM: No focal deficit. DISCHARGE ADVICE AND MEDICATIONS: 1. Discharge diet is cardiac. 2. Activity limited until followup. 3. Follow up with Dr. Fink in 2-3 days. 4. Follow up with Dr. Pelayo as advised. 5. Ecotrin 81 mg p.o. b.i.d. 6. Lipitor 40 mg p.o. daily. 7. Zyrtec 10 mg p.o. daily. 8. Vitamin B12 500 mcg p.o. daily. 9. Meloxicam 7.5 mg p.o. daily. 10.Omeprazole 20 mg p.o. daily. Once again, the patient will be discharged in stable condition with guarded prognosis. MMODL / IJN: [id number] /
== END 2017-06-30 16:09 | disposition home or self-care (01) | DRG 69 ==
LOC: EC 19:06 → INTOOBSV 19:50 → OBSVTOIN 19:50 → 6SEL 19:50 → 3SUR 06-27 21:40 → OBSVTOIN 06-29 18:11
PROVIDERS: ADMIT Hospitalist; ATTEND Hospitalist
DX: G45.9 Transient cerebral ischemic attack, unspecified (principal); R47.01 Aphasia; E78.00 Pure hypercholesterolemia, unspecified; E78.5 Hyperlipidemia, unspecified; I08.3 Combined rheumatic disorders of mitral, aortic and tricuspid valves; M21.371 Foot drop, right foot; S63.91XA Sprain of unspecified part of right wrist and hand, initial encounter; Z79.82 Long term (current) use of aspirin; Z79.899 Other long term (current) drug therapy; Z87.891 Personal history of nicotine dependence; Z96.651 Presence of right artificial knee joint; M13.839 Other specified arthritis, unspecified wrist
CPT/HCPCS: 70544; 70549; 70553; 80048; 80061; 93005; 93306; 93312; 93320; 93325; 96372; 99285